=== PATIENT | male | born 1995 | race Asian ===

== ENCOUNTER 2018-11-02 09:13 | Emergency (ER) | payer OTHER ==
--- NOTE | 2018-11-02 13:30 | ED ---
Headache - HPI Summary HPI Summary: A 23 y/o M presents to ED with c/o severe STANTON at his L eyebrow onset this AM when he woke up. The pain is throbbing and radiates outward. He called [facility] who referred him to the ED. Pt is feeling better, sx have resolved since being in the ED. Associated sx: nausea. He has not had pain like this before, no prior hx of STANTON or migraines. Denies: rhinorrhea, congestion, ear pain, photophobia, vision changes, neck pain. Moving his eyebrows and eyes did not make the pain worse. Pt has been sleeping 7 hours a night, and work is stressful per usual. Pt expressed being upset at having waited so long. - History Of Current Complaint Chief Complaint: EDHeadache Stated Complaint: HEADACHE IN EYE PER PT Time Seen by Provider: 11/02/18 12:31 Hx Obtained From: Patient Onset/Duration: Started hours ago, Resolved Initially Headache Was: Moderate Currently Pain Is: Moderate Timing: Constant Character: Throbbing Location of Headache: Other: - L eyebrow Associated Signs And Symptoms: Nausea - Allergies/Home Medications Allergies/Adverse Reactions: Allergies Allergy/AdvReac Type Severity Reaction Status Date / Time No Known Allergies Allergy Verified 11/02/18 09:19 PMH/Surg Hx/FS Hx/Imm Hx Previously Healthy: Yes Sensory History: Reports: Hx Contacts or Glasses Opthamlomology History: Reports: Hx Contacts or Glasses EENT History: Denies: Hx Deafness Neurological History: Denies: Hx Dementia, Hx Headaches, Hx Migraine Infectious Disease History: No Infectious Disease History: Denies: Traveled Outside the [place] in Last 30 Days - Social History Occupation: Student Lives: Alone Alcohol Use: None Hx Substance Use: No Substance Use Type: Reports: None Hx Tobacco Use: No Smoking Status (MU): Never Smoked Tobacco Review of Systems Negative: Fever, Chills Eyes: Negative Negative: Photophobia, Erythema ENT: Negative Negative: Sore Throat Negative: Chest Pain Negative: Shortness Of Breath, Cough Positive: Nausea. Negative: Abdominal Pain, Vomiting Negative: dysuria, hematuria Musculoskeletal: Other - neg: neck pain Negative: Myalgia, Edema Negative: Rash Neurological: Other - neg: dizziness Positive: Headache - above L eyebrow All Other Systems Reviewed And Are Negative: Yes Physical Exam - Summary Physical Exam Summary: Constitutional: Well-developed, Well-nourished, Alert. (-) Distressed Skin: Warm, Dry HENT: Normocephalic; Atraumatic Eyes: Conjunctiva normal Neck: Musculoskeletal ROM normal neck. (-) JVD, (-) Stridor, (-) Tracheal deviation Cardio: Rhythm regular, rate normal, Heart sounds normal; Intact distal pulses; The pedal pulses are 2+ and symmetric. Radial pulses are 2+ and symmetric. (-) Murmur Pulmonary/Chest wall: Effort normal. (-) Respiratory distress, (-) Wheezes, (-) Rales Abd: Soft. (-) Tenderness, (-) Distension, (-) Guarding, (-) Rebound Musculoskeletal: (-) Edema Lymph: (-) Cervical adenopathy Neuro: Alert, Oriented x3, Strength normal, Cranial nerves II-XII are grossly intact. (-) Dysmetria, (-) Nystagmus, (-) Ataxia by finger to nose testing, (-) Sensory deficit. Psych: Mood and affect Normal Triage Information Reviewed: Yes Vital Signs On Initial Exam: Initial Vitals Temp Pulse Resp BP Pulse Ox 97.1 F 65 15 143/88 99 11/02/18 09:15 11/02/18 09:15 11/02/18 09:15 11/02/18 09:15 11/02/18 09:15 Vital Signs Reviewed: Yes Diagnostics - Vital Signs Vital Signs Temp Pulse Resp BP Pulse Ox 11/02/18 11:41 98.4 F 89 16 139/78 100 11/02/18 09:15 97.1 F 65 15 143/88 99 - Laboratory Lab Statement: Any lab studies that have been ordered have been reviewed, and results considered in the medical decision making process. Headache Course/Dx - Course Course Of Treatment: Pt is a 23 y/o M referred from [facility] presenting with severe STANTON at his L eyebrow onset this AM when he woke up. The pain is throbbing and radiates outward. Pt is feeling better, sx have resolved since being in the ED. Associated sx: nausea. He has not had pain like this before, no prior hx of STANTON or migraines. Deneis: rhinorrhea, congestion, ear pain, photophobia, vision changes, neck pain. Moving his eyebrows and eyes did not make the pain worse. Pt has been sleeping 7 hours a night, and work is stressful per usual. Pt expressed being upset at having waited so long. Patient 's sx have resolved while in ED, I believe this is a tension STANTON. Will discharge home to f/u with [facility] in 2-3 days. - Diagnoses Provider Diagnoses: Tension headache Discharge - Sign-Out/Discharge Documenting (check all that apply): Patient Departure - D/C Patient Received Moderate/Deep Sedation with Procedure: No - Discharge Plan Condition: Stable Disposition: HOME Patient Education Materials: Tension Headache (ED) Referrals: [facility] [Outside] - 3 Days Additional Instructions: If the headache comes back, use a warming pad such as a wash cloth. Try resting your eyes and limit your screen time, particularly if you're squinting. Return to the emergency department for changing or worsening symptoms. - Attestation Statements Document Initiated by Scribe: Yes Documenting Scribe: Brian Muniz Provider For Whom Scribe is Documenting (Include Credential): Dr. Prakash Higgins MD Scribe Attestation: I, Brian Muniz, scribed for Dr. Prakash Higgins MD on 11/02/18 at 1420. Status of Scribe Document: Ready
[2018-11-02 13:36] VITALS: BP 121/66
== END 2018-11-02 13:34 | disposition home or self-care (01) ==
LOC: ED 09:13
DX: G44.209 Tension-type headache, unspecified, not intractable (principal); R11.10 Vomiting, unspecified
CPT/HCPCS: 99281